=== PATIENT | female | born 1940 | race Two or more races ===

== ENCOUNTER → 2024-07-24 | Outpatient (BNVA) | payer MEDICARE, MEDICAID, SELFPAY | END | disposition home or self-care (01) | PROVIDERS: PCP Nurse Practitioner Family; Referring Provider Nurse Practitioner Family; Visit Provider Nurse Practitioner Family | DX: N39.0 Urinary tract infection, site not specified (principal) | CPT/HCPCS: 81001; 99215 ==

== ENCOUNTER → 2024-08-01 | Outpatient (BNVA) | payer MEDICARE, MEDICAID, SELFPAY | END | disposition home or self-care (01) | PROVIDERS: PCP Nurse Practitioner Family; Referring Provider Nurse Practitioner Family; Visit Provider Nurse Practitioner Family | DX: Z71.2 Person consulting for explanation of examination or test findings (principal) | CPT/HCPCS: 99212; G0463 ==

== ENCOUNTER → 2024-08-10 | Outpatient (CLI) | payer MEDICARE, MEDICAID, SELFPAY ==
--- NOTE | 2024-08-10 12:20 | XR_ITS ---
Examination: Bone densitometry Date and time of exam:August 10, 2024 1233 hours INDICATIONS: Menopause age 50 calcium and vitamin D 2 weeks Technique: Lumbar spine and hip total bone mineralization values of an calculated. Peak reference and age match control results have been displayed. Findings: Lumbar spine total bone mineralization is0.721 gm/cm2. This is 3.0 standard deviations below peak reference. This is 0.1 standard deviations below age-matched controls. Hip total bone mineralization is 0.741 gm/cm2 This is 1.7 standard deviations below peak reference. This is 0.6 standard deviations above age-matched controls Impression: There is osteoporosis based on lumbar spine measurements. There is osteoporosis based on hip measurements
== END | disposition home or self-care (01) ==
PROVIDERS: PCP Nurse Practitioner Family; Referring Provider Nurse Practitioner Family; Visit Provider Nurse Practitioner Family
DX: Z13.820 Encounter for screening for osteoporosis (principal); M81.0 Age-related osteoporosis without current pathological fracture
CPT/HCPCS: 77080

== ENCOUNTER → 2024-08-24 | Outpatient (BNVA) | payer MEDICARE, MEDICAID, SELFPAY | END | disposition home or self-care (01) | PROVIDERS: PCP Nurse Practitioner Family; Referring Provider Nurse Practitioner Family; Visit Provider Nurse Practitioner Family | DX: I10 Essential (primary) hypertension (principal) | CPT/HCPCS: 99213 ==

== ENCOUNTER → 2024-10-06 | Outpatient (BNVA) | payer MEDICARE, MEDICAID, SELFPAY | END | disposition home or self-care (01) | PROVIDERS: PCP Nurse Practitioner Family; Referring Provider Nurse Practitioner Family; Visit Provider Nurse Practitioner Family | DX: Z71.2 Person consulting for explanation of examination or test findings (principal); E78.5 Hyperlipidemia, unspecified; I10 Essential (primary) hypertension; R73.03 Prediabetes; E87.5 Hyperkalemia | CPT/HCPCS: 99214 ==

== ENCOUNTER → 2025-07-13 | Outpatient (BNVA) | payer MEDICARE, MEDICAID, SELFPAY | END | disposition home or self-care (01) | PROVIDERS: PCP Nurse Practitioner Family; Referring Provider Nurse Practitioner Family; Visit Provider Nurse Practitioner Family | DX: R73.03 Prediabetes (principal); I10 Essential (primary) hypertension; J44.9 Chronic obstructive pulmonary disease, unspecified; E55.9 Vitamin D deficiency, unspecified; E78.5 Hyperlipidemia, unspecified; Z76.0 Encounter for issue of repeat prescription; Z28.21 Immunization not carried out because of patient refusal | CPT/HCPCS: 99213 ==

== ENCOUNTER → 2025-07-18 | Outpatient (CLI) | payer MEDICARE, MEDICAID, SELFPAY ==
--- NOTE | 2025-07-18 13:36 | XR_ITS ---
EXAMINATION: PA lateral chest 2 views TECHNIQUE: Upright PA and lateral chest 2 views Date and time: July 18, 2025, 1404 hours, comparison June 18, 2024 INDICATIONS: Cough and shortness of breath wheezing beginning 4 days ago. FINDINGS: Significant hyperexpansion Mild prominence left ventricle Ectatic enlarged thoracic aorta Mild pulmonary vascular redistribution Increased AP dimension chest Severe osteopenia IMPRESSION: COPD with significant hyperexpansion No pneumonia or pulmonary edema
== END | disposition home or self-care (01) ==
LOC: CDIM 13:26
PROVIDERS: PCP Nurse Practitioner Family; Referring Provider Nurse Practitioner Family; Visit Provider Nurse Practitioner Family
DX: J44.9 Chronic obstructive pulmonary disease, unspecified (principal)
CPT/HCPCS: 71046

== ENCOUNTER → 2025-07-26 | Outpatient (BNVA) | payer MEDICARE, MEDICAID, SELFPAY | END | disposition home or self-care (01) | PROVIDERS: PCP Nurse Practitioner Primary Care; Referring Provider Nurse Practitioner Primary Care; Visit Provider Nurse Practitioner Primary Care | DX: E55.9 Vitamin D deficiency, unspecified (principal); J44.9 Chronic obstructive pulmonary disease, unspecified; E78.5 Hyperlipidemia, unspecified; Z71.2 Person consulting for explanation of examination or test findings | CPT/HCPCS: 99212; G0463 ==

== ENCOUNTER → 2025-08-01 | Outpatient (BNVA) | payer MEDICARE, MEDICAID, SELFPAY | END | disposition home or self-care (01) | PROVIDERS: PCP Nurse Practitioner Primary Care; Referring Provider Nurse Practitioner Primary Care; Visit Provider Nurse Practitioner Primary Care | DX: K29.50 Unspecified chronic gastritis without bleeding (principal) | CPT/HCPCS: 81001; 99214 ==

== ENCOUNTER → 2025-08-13 | Outpatient (BNVA) | payer MEDICARE, MEDICAID, SELFPAY | END | disposition home or self-care (01) | PROVIDERS: PCP Nurse Practitioner Family; Referring Provider Nurse Practitioner Family; Visit Provider Nurse Practitioner Family | DX: R05.9 Cough, unspecified (principal); J44.9 Chronic obstructive pulmonary disease, unspecified | CPT/HCPCS: 87804; 87811; 99213 ==